=== PATIENT | female | born 1940 | race Caucasian/White ===

== ENCOUNTER → 2016-04-23 | Outpatient (CLI) | payer MEDICARE, BC ==
[~2016-04-23] MED LIST: ATIVAN0.5 MG PO; CALCIUM CITRAT1 EAC9 PO; LOPRESSOR 225 MG/TAB PO; NORVASC 10MG10 MG PO; RANITIDINE HCL300 M1 PO; SERTRALINE PO
== END ==
LOC: RAD 14:04
DX: R10.9 Unspecified abdominal pain (principal)

== ENCOUNTER → 2016-07-02 | Outpatient (CLI) | payer MEDICARE, BC ==
[2015-11-18 12:00] VITALS: BP 168/76
== END ==
LOC: LAB 16:15
DX: R00.2 Palpitations (principal); I10 Essential (primary) hypertension

== ENCOUNTER → 2016-07-06 | Outpatient (CLI) | payer MEDICARE, BC ==
[2016-07-06 10:15] VITALS: BP 126/61
== END ==
LOC: AMSURD 09:57
DX: R00.2 Palpitations (principal)

== ENCOUNTER → 2016-07-16 | Outpatient (CLI) | payer MEDICARE, BC ==
[2016-07-06 10:15] VITALS: BP 126/61
== END ==
LOC: CARDLAB 10:31
DX: I49.3 Ventricular premature depolarization (principal); I47.1 Supraventricular tachycardia
CPT/HCPCS: A9500

== ENCOUNTER → 2016-07-22 | Outpatient (CLI) | payer MEDICARE, BC ==
[2016-07-06 10:15] VITALS: BP 126/61
== END ==
LOC: VAS 16:45
DX: R00.2 Palpitations (principal); I49.3 Ventricular premature depolarization; I47.1 Supraventricular tachycardia; I25.10 Atherosclerotic heart disease of native coronary artery without angina pectoris; I34.0 Nonrheumatic mitral (valve) insufficiency

== ENCOUNTER → 2016-07-23 | Outpatient (CLI) | payer MEDICARE, BC ==
[2016-07-06 10:15] VITALS: BP 126/61
== END ==
LOC: CARDLAB 07-16 13:36 → CARDREHAB 12:33 → CARDLAB 12:33
DX: G47.33 Obstructive sleep apnea (adult) (pediatric) (principal); R09.02 Hypoxemia
CPT/HCPCS: G0399

== ENCOUNTER → 2016-12-16 | Outpatient (CLI) | payer MEDICARE, BC ==
[2016-07-06 10:15] VITALS: BP 126/61
== END ==
LOC: MAMMO 09:37
DX: Z12.31 Encounter for screening mammogram for malignant neoplasm of breast (principal)
CPT/HCPCS: G0202

== ENCOUNTER → 2016-12-21 | Outpatient (CLI) | payer MEDICARE, BC ==
[2016-07-06 10:15] VITALS: BP 126/61
== END ==
LOC: LAB 09:50
DX: Z12.11 Encounter for screening for malignant neoplasm of colon (principal); I10 Essential (primary) hypertension; E04.1 Nontoxic single thyroid nodule; K90.9 Intestinal malabsorption, unspecified; E78.2 Mixed hyperlipidemia

== ENCOUNTER → 2017-01-06 | Outpatient (CLI) | payer MEDICARE, BC ==
[2016-07-06 10:15] VITALS: BP 126/61
== END ==
LOC: LAB 11:16
DX: Z12.11 Encounter for screening for malignant neoplasm of colon (principal)

== ENCOUNTER → 2017-01-24 | Outpatient (CLI) | payer MEDICARE, BC ==
[2016-07-06 10:15] VITALS: BP 126/61
== END ==
LOC: RAD 10:48
DX: E04.1 Nontoxic single thyroid nodule (principal)

== ENCOUNTER → 2017-08-10 | Outpatient (CLI) | payer MEDICARE, BC ==
[2016-07-06 10:15] VITALS: BP 126/61
== END ==
LOC: MAMMO 11:23
DX: M81.0 Age-related osteoporosis without current pathological fracture (principal)

== ENCOUNTER → 2017-10-25 | Day surgery (SDC) | payer MEDICARE, BC ==
[2016-07-06 10:15] VITALS: BP 126/61
== END ==
LOC: MSO 09:00
DX: Z12.11 Encounter for screening for malignant neoplasm of colon (principal); Z86.010 Personal history of colon polyps; K63.5 Polyp of colon; I10 Essential (primary) hypertension; K21.9 Gastro-esophageal reflux disease without esophagitis; Z79.899 Other long term (current) drug therapy
CPT/HCPCS: 00811; J2704; J3010; J7120

== ENCOUNTER → 2017-11-08 | Outpatient (CLI) | payer MEDICARE, BC ==
[2016-07-06 10:15] VITALS: BP 126/61
== END ==
LOC: RAD 13:50 → MAMMO 14:00 → RAD 14:00
DX: E04.1 Nontoxic single thyroid nodule (principal)

== ENCOUNTER → 2017-12-20 | Outpatient (CLI) | payer MEDICARE, BC ==
[2016-07-06 10:15] VITALS: BP 126/61
== END ==
LOC: MAMMO 12:49
DX: Z12.31 Encounter for screening mammogram for malignant neoplasm of breast (principal)

== ENCOUNTER → 2018-01-31 | Outpatient (CLI) | payer MEDICARE, BC ==
[2016-07-06 10:15] VITALS: BP 126/61
[2018-01-31 09:29] LABS: EOS # 0.3 (0.04-0.40); EOS % 4.7 % (1.0-5.0); LYMPH# 2.2 (1.50-4.00); MEAN CELL VOLUME 91 fl (78-100); MEAN CORPUSCULAR HEMOGLOBIN 30 pg (27-31); MEAN CORPUSCULAR HGB CONC 33 g/dL (33-37); MEAN PLATELET VOLUME 11.3 fl (7.4-10.4); MONO # 0.6 (0.20-0.80); NEU # 2.4 (1.40-6.50); PLATELET COUNT 144 K/mm3 (130-400); RED BLOOD COUNT 4.93 M/mm3 (4.10-5.30); WHITE BLOOD COUNT 5.5 K/mm3 (4.8-10.8)
[2018-01-31 09:38] LABS: URINE APPEARANCE CLOUDY; URINE COLOR YELLOW
[2018-01-31 09:39] LABS: URINE BILIRUBIN NEGATIVE (NEGATIVE); URINE BLOOD NEGATIVE (NEGATIVE); URINE GLUCOSE NEGATIVE (NEGATIVE); URINE KETONE NEGATIVE (NEGATIVE); URINE LEUKOCYTE ESTERASE TRACE (NEGATIVE); URINE MUCUS PRESENT (NOT PRESENT); URINE NITRATE NEGATIVE (NEGATIVE); URINE PROTEIN(semi-quant) TRACE mg/dL (NEGATIVE); URINE UROBILINOGEN NORMAL (NORMAL)
[2018-01-31 09:49] LABS: POTASSIUM 4.9 mmol/L (3.6-5.0)
[2018-01-31 09:52] LABS: TOTAL PROTEIN 7.2 g/dL (6.3-8.2)
[2018-01-31 10:05] LABS: ALBUMIN 4.3 g/dL (3.5-5.0); TOTAL BILIRUBIN 0.6 mg/dL (0.2-1.3)
[2018-01-31 10:37] LABS: ERYTHROCYTE SEDIMENTATION RATE 1 mm/hr (0-30)
[2018-01-31 10:48] LABS: CALCIUM 9.8 mg/dL (8.4-10.2)
== END ==
LOC: LAB 09:00
PROVIDERS: Internal Medicine
DX: Z12.11 Encounter for screening for malignant neoplasm of colon (principal); R00.2 Palpitations; I10 Essential (primary) hypertension; E78.2 Mixed hyperlipidemia; K90.9 Intestinal malabsorption, unspecified; E04.1 Nontoxic single thyroid nodule

== ENCOUNTER → 2018-02-07 | Outpatient (CLI) | payer MEDICARE, BC ==
[2016-07-06 10:15] VITALS: BP 126/61
== END ==
LOC: LAB 12:09
DX: Z12.11 Encounter for screening for malignant neoplasm of colon (principal); I10 Essential (primary) hypertension; E04.1 Nontoxic single thyroid nodule; R00.2 Palpitations

== ENCOUNTER → 2018-02-07 | Outpatient (CLI) | payer MEDICARE, BC ==
[2016-07-06 10:15] VITALS: BP 126/61
== END ==
LOC: RAD 14:13
DX: M19.032 Primary osteoarthritis, left wrist (principal); M11.232 Other chondrocalcinosis, left wrist

== ENCOUNTER → 2018-05-03 | Outpatient (CLI) | payer MEDICARE, BC ==
[2016-07-06 10:15] VITALS: BP 126/61
== END ==
LOC: CARDREHAB 08:00
DX: G47.33 Obstructive sleep apnea (adult) (pediatric) (principal); R06.83 Snoring; G47.36 Sleep related hypoventilation in conditions classified elsewhere; G47.10 Hypersomnia, unspecified; Z79.899 Other long term (current) drug therapy; Z79.2 Long term (current) use of antibiotics
CPT/HCPCS: G0399

== ENCOUNTER → 2018-12-26 | Outpatient (CLI) | payer MEDICARE, BC ==
[2016-07-06 10:15] VITALS: BP 126/61
== END ==
LOC: MAMMO 12:55
DX: Z12.31 Encounter for screening mammogram for malignant neoplasm of breast (principal)

== ENCOUNTER → 2019-02-07 | Outpatient (CLI) | payer MEDICARE, BC ==
[2016-07-06 10:15] VITALS: BP 126/61
== END ==
LOC: AMSURD 08:06
DX: I49.3 Ventricular premature depolarization (principal)

== ENCOUNTER → 2019-03-09 | Outpatient (CLI) | payer MEDICARE, BC ==
[2016-07-06 10:15] VITALS: BP 126/61
[2019-03-09 10:33] LABS: EOS # 0.2 (0.04-0.40); HEMATOCRIT 42.5 % (37.0-47.0); HEMOGLOBIN 14.3 g/dL (12.5-16.0); LYMPH# 1.6 (1.50-4.00); MEAN CELL VOLUME 91 fl (78-100); MEAN CORPUSCULAR HEMOGLOBIN 31 pg (27-31); MEAN CORPUSCULAR HGB CONC 34 g/dL (33-37); MEAN PLATELET VOLUME 10.6 fl (7.4-10.4); MONO # 0.5 (0.20-0.80); NEU # 2.9 (1.40-6.50); PLATELET COUNT 186 K/mm3 (130-400); RED BLOOD COUNT 4.69 M/mm3 (4.10-5.30); RED CELL DISTRIBUTION WIDTH 13.1 % (11.5-14.5); WHITE BLOOD COUNT 5.3 K/mm3 (4.8-10.8)
[2019-03-09 10:40] LABS: POTASSIUM 4.2 mmol/L (3.5-5.1)
[2019-03-09 10:41] LABS: ALBUMIN 4.1 g/dL (3.4-4.8)
[2019-03-09 10:42] LABS: CALCIUM 9.6 mg/dL (8.3-10.5)
[2019-03-09 10:43] LABS: TOTAL PROTEIN 6.9 g/dL (6.2-8.1)
[2019-03-09 10:45] LABS: TOTAL BILIRUBIN 0.5 mg/dL (0.2-1.2)
[2019-03-09 10:50] LABS: MAGNESIUM 1.74 mg/dL (1.60-2.60)
[2019-03-09 11:00] LABS: URINE APPEARANCE CLOUDY; URINE BILIRUBIN NEGATIVE (NEGATIVE); URINE BLOOD NEGATIVE (NEGATIVE); URINE COLOR YELLOW; URINE GLUCOSE NEGATIVE (NEGATIVE); URINE KETONE NEGATIVE (NEGATIVE); URINE LEUKOCYTE ESTERASE NEGATIVE (NEGATIVE); URINE NITRATE NEGATIVE (NEGATIVE); URINE PROTEIN(semi-quant) NEGATIVE (NEGATIVE); URINE UROBILINOGEN NORMAL (NORMAL); URINE WBC 0-1 /hpf (0-3)
== END ==
LOC: LAB 10:16
PROVIDERS: Internal Medicine
DX: Z01.812 Encounter for preprocedural laboratory examination (principal); H25.013 Cortical age-related cataract, bilateral; K90.9 Intestinal malabsorption, unspecified; E78.2 Mixed hyperlipidemia; Z98.1 Arthrodesis status

== ENCOUNTER → 2019-10-09 | Outpatient (CLI) | payer MEDICARE, BC ==
[2016-07-06 10:15] VITALS: BP 126/61
[2019-10-09 14:32] LABS: BASO # 0.1 (0.02-0.10); EOS # 0.2 (0.04-0.40); EOS % 3.5 % (1.0-5.0); HEMOGLOBIN 13.7 g/dL (12.5-16.0); LYMPH# 2.2 (1.50-4.00); MEAN CELL VOLUME 91 fl (78-100); MEAN CORPUSCULAR HEMOGLOBIN 30 pg (27-31); MEAN CORPUSCULAR HGB CONC 33 g/dL (33-37); MEAN PLATELET VOLUME 10.8 fl (7.4-10.4); MONO # 0.7 (0.20-0.80); NEU # 2.9 (1.40-6.50); PLATELET COUNT 171 K/mm3 (130-400); RED BLOOD COUNT 4.52 M/mm3 (4.10-5.30); RED CELL DISTRIBUTION WIDTH 12.8 % (11.5-14.5)
[2019-10-09 14:44] LABS: ALBUMIN 4.1 g/dL (3.4-4.8)
[2019-10-09 14:45] LABS: CALCIUM 9.5 mg/dL (8.3-10.5)
[2019-10-09 14:48] LABS: TOTAL BILIRUBIN 0.5 mg/dL (0.2-1.2)
== END ==
LOC: LAB 14:10
PROVIDERS: Family Medicine
DX: I10 Essential (primary) hypertension (principal); E78.2 Mixed hyperlipidemia; E04.1 Nontoxic single thyroid nodule; K90.9 Intestinal malabsorption, unspecified

== ENCOUNTER → 2019-10-16 | Outpatient (CLI) | payer MEDICARE, BC ==
[2016-07-06 10:15] VITALS: BP 126/61
== END ==
LOC: RAD 08:30
DX: M71.22 Synovial cyst of popliteal space [Baker], left knee (principal); S83.92XA Sprain of unspecified site of left knee, initial encounter; M94.262 Chondromalacia, left knee; S83.232A Complex tear of medial meniscus, current injury, left knee, initial encounter

== ENCOUNTER → 2020-01-01 | Outpatient (CLI) | payer MEDICARE, BC ==
[2016-07-06 10:15] VITALS: BP 126/61
== END ==
LOC: MAMMO 14:15
DX: Z12.31 Encounter for screening mammogram for malignant neoplasm of breast (principal)

== ENCOUNTER → 2020-01-07 | Outpatient (CLI) | payer MEDICARE, BC ==
[2016-07-06 10:15] VITALS: BP 126/61
== END ==
LOC: LAB 09:13
DX: K90.9 Intestinal malabsorption, unspecified (principal)

== ENCOUNTER → 2020-02-26 | Outpatient (CLI) | payer MEDICARE, BC ==
[2016-07-06 10:15] VITALS: BP 126/61
[2020-02-26 16:56] LABS: HEMOGLOBIN 13.1 g/dL (12.5-16.0); RED BLOOD COUNT 4.33 M/mm3 (4.10-5.30); RED CELL DISTRIBUTION WIDTH 12.4 % (11.5-14.5); WHITE BLOOD COUNT 6.1 K/mm3 (4.8-10.8)
[2020-02-26 17:15] LABS: ALBUMIN 3.8 g/dL (3.4-4.8)
[2020-02-26 17:16] LABS: POTASSIUM 4.1 mmol/L (3.5-5.1)
[2020-02-26 17:17] LABS: CALCIUM 8.8 mg/dL (8.3-10.5)
[2020-02-26 17:18] LABS: TOTAL PROTEIN 6.1 g/dL (6.2-8.1)
[2020-02-26 17:20] LABS: TOTAL BILIRUBIN 0.3 mg/dL (0.2-1.2)
[2020-02-26 17:25] LABS: MAGNESIUM 1.93 mg/dL (1.60-2.60)
== END ==
LOC: LAB 16:10
PROVIDERS: Internal Medicine
DX: I10 Essential (primary) hypertension (principal); E04.1 Nontoxic single thyroid nodule

== ENCOUNTER → 2020-05-12 | Outpatient (CLI) | payer MEDICARE, BC ==
[2016-07-06 10:15] VITALS: BP 126/61
== END ==
LOC: RAD 11:37
DX: M47.812 Spondylosis without myelopathy or radiculopathy, cervical region (principal)

== ENCOUNTER → 2020-09-11 | Day surgery (SDC) | payer MEDICARE, BC | LOC: MSO 08:50 | DX: R13.10 Dysphagia, unspecified (principal); I10 Essential (primary) hypertension; M85.80 Other specified disorders of bone density and structure, unspecified site; M19.039 Primary osteoarthritis, unspecified wrist; Z91.040 Latex allergy status; Z79.899 Other long term (current) drug therapy; Z80.0 Family history of malignant neoplasm of digestive organs | CPT/HCPCS: 00731; C1769; J2704; J7120 ==

== ENCOUNTER → 2021-01-02 | Outpatient (CLI) | payer MEDICARE, BC ==
[2021-01-02 16:25] LABS: ALBUMIN 3.9 g/dL (3.4-4.8); BASO # 0.05 K/mm3 (0.02-0.10); EOS # 0.48 K/mm3 (0.04-0.40); EOS % 6.5 % (1.0-5.0); HEMATOCRIT 42.7 % (37.0-47.0); HEMOGLOBIN 14.1 g/dL (12.5-16.0); LYMPH# 2.28 K/mm3 (1.50-4.00); MEAN CELL VOLUME 94 fl (78-100); MEAN CORPUSCULAR HEMOGLOBIN 31 pg (27-31); MEAN CORPUSCULAR HGB CONC 33 g/dL (33-37); MEAN PLATELET VOLUME 10.9 fl (7.4-10.4); NEU # 3.82 K/mm3 (1.40-6.50); PLATELET COUNT 173 K/mm3 (130-400); POTASSIUM 4.6 mmol/L (3.5-5.1); RED BLOOD COUNT 4.54 M/mm3 (4.10-5.30); RED CELL DISTRIBUTION WIDTH 12.8 % (11.5-14.5); WHITE BLOOD COUNT 7.4 K/mm3 (4.8-10.8)
[2021-01-02 16:28] LABS: TOTAL PROTEIN 6.8 g/dL (6.2-8.1)
[2021-01-02 16:30] LABS: TOTAL BILIRUBIN 0.5 mg/dL (0.2-1.2)
[2021-01-02 16:35] LABS: MAGNESIUM 2.04 mg/dL (1.60-2.60)
== END ==
LOC: LAB 15:54
PROVIDERS: Internal Medicine
DX: I10 Essential (primary) hypertension (principal); K90.9 Intestinal malabsorption, unspecified; E78.2 Mixed hyperlipidemia; E04.1 Nontoxic single thyroid nodule

== ENCOUNTER → 2021-01-15 | Outpatient (CLI) | payer MEDICARE, BC | LOC: MAMMO 09:15 | DX: M81.0 Age-related osteoporosis without current pathological fracture (principal); Z12.31 Encounter for screening mammogram for malignant neoplasm of breast ==

== ENCOUNTER → 2021-01-15 | Outpatient (CLI) | payer MEDICARE, BC | LOC: RAD 09:38 | DX: Z13.820 Encounter for screening for osteoporosis (principal); M81.0 Age-related osteoporosis without current pathological fracture ==

== ENCOUNTER → 2021-02-10 | Outpatient (CLI) | payer MEDICARE, BC | LOC: RAD 12:23 | DX: M51.36 Other intervertebral disc degeneration, lumbar region (principal); M41.86 Other forms of scoliosis, lumbar region; Z98.1 Arthrodesis status ==

== ENCOUNTER → 2021-03-23 | Outpatient (CLI) | payer MEDICARE, BC | LOC: LAB 14:38 | DX: U07.1 COVID-19 (principal) ==

== ENCOUNTER → 2021-06-12 | Outpatient (CLI) | payer MEDICARE, BC | LOC: RAD 14:14 | DX: M16.0 Bilateral primary osteoarthritis of hip (principal); M47.816 Spondylosis without myelopathy or radiculopathy, lumbar region; M41.86 Other forms of scoliosis, lumbar region; Z98.1 Arthrodesis status; Z98.890 Other specified postprocedural states ==

== ENCOUNTER → 2021-06-22 | Outpatient (CLI) | payer MEDICARE, BC | LOC: AMSURD 16:14 | DX: R00.2 Palpitations (principal) ==

== ENCOUNTER → 2021-09-14 | Outpatient (CLI) | payer MEDICARE, BC | LOC: RAD 11:36 | DX: M50.321 Other cervical disc degeneration at C4-C5 level (principal) ==

== ENCOUNTER → 2021-10-19 | Outpatient (CLI) | payer MEDICARE, BC | LOC: LAB 17:06 | DX: Z20.822 Contact with and (suspected) exposure to COVID-19 (principal) ==

== ENCOUNTER → 2022-04-09 | Outpatient (CLI) | payer MEDICARE, BC | LOC: CARDREHAB 09:05 | DX: R06.00 Dyspnea, unspecified (principal) | CPT/HCPCS: A9500; J2785 ==

== ENCOUNTER 2022-11-09 09:29 | Outpatient (RCR) | payer MEDICARE, BC ==
[~2022-11-09 09:29] MED LIST changes: -SERTRALINE PO; +ZOLOFT 50MG50 MG PO
[2022-11-14] MEDS ORDERED: LOSARTAN POTAS100 MG PO (12:07)
[2022-11-14] MEDS ORDERED: CIPROFLOXACIN250 MG PO (12:07)
[2022-11-14] MEDS ORDERED: METRONIDAZOLE500 M1 PO (12:07)
[2022-11-14] MEDS ORDERED: HCTZ 25MG25 MG PO (12:08)
== END 2022-11-18 | disposition home or self-care (01) ==
LOC: PT
DX: M54.16 Radiculopathy, lumbar region (principal)

== ENCOUNTER → 2022-12-03 | Outpatient (CLI) | payer MEDICARE, BC ==
[~2022-12-03] MED LIST changes: +CIPROFLOXACIN250 MG PO; +HCTZ 25MG25 MG PO; +LOSARTAN POTAS100 MG PO; +METRONIDAZOLE500 M1 PO
[2022-12-03 11:46] LABS: BASO # 0.06 K/mm3 (0.02-0.10); EOS # 0.25 K/mm3 (0.04-0.40); EOS % 3.8 % (1.0-5.0); HEMATOCRIT 42.5 % (37.0-47.0); MEAN CELL VOLUME 94 fl (78-100); MEAN CORPUSCULAR HEMOGLOBIN 31 pg (27-31); MEAN CORPUSCULAR HGB CONC 33 g/dL (33-37); MEAN PLATELET VOLUME 10.1 fl (7.4-10.4); MONO # 0.64 K/mm3 (0.20-0.80); NEU # 3.52 K/mm3 (1.40-6.50); PLATELET COUNT 204 K/mm3 (130-400); RED BLOOD COUNT 4.53 M/mm3 (4.10-5.30); RED CELL DISTRIBUTION WIDTH 12.4 % (11.5-14.5); WHITE BLOOD COUNT 6.6 K/mm3 (4.8-10.8)
[2022-12-03 12:04] LABS: ALBUMIN 4.2 g/dL (3.4-4.8); POTASSIUM 4.3 mmol/L (3.5-5.1)
[2022-12-03 12:05] LABS: CALCIUM 9.6 mg/dL (8.3-10.5)
[2022-12-03 12:07] LABS: TOTAL PROTEIN 6.7 g/dL (6.2-8.1)
[2022-12-03 12:08] LABS: TOTAL BILIRUBIN 0.5 mg/dL (0.2-1.2)
[2022-12-03 12:13] LABS: MAGNESIUM 2.1 mg/dL (1.60-2.60)
== END ==
LOC: LAB 11:29
PROVIDERS: Internal Medicine
DX: I10 Essential (primary) hypertension (principal); R07.89 Other chest pain; M54.16 Radiculopathy, lumbar region; E04.1 Nontoxic single thyroid nodule; K57.32 Diverticulitis of large intestine without perforation or abscess without bleeding; M48.062 Spinal stenosis, lumbar region with neurogenic claudication; R77.8 Other specified abnormalities of plasma proteins

== ENCOUNTER → 2022-12-13 | Outpatient (CLI) | payer MEDICARE, BC | LOC: RAD 07:02 | DX: E04.1 Nontoxic single thyroid nodule (principal) ==

== ENCOUNTER → 2023-05-09 | Day surgery (SDC) | payer MEDICARE, BC ==
[~2023-05-09] MED LIST changes: +Lidocaine PF 2% (20 MG/ML) 5 ML VIAL ONE
== END | disposition home or self-care (01) ==
LOC: MSO 07:15
DX: R13.19 Other dysphagia (principal); K29.00 Acute gastritis without bleeding; K29.50 Unspecified chronic gastritis without bleeding; K29.80 Duodenitis without bleeding; G47.33 Obstructive sleep apnea (adult) (pediatric)
CPT/HCPCS: 00731; J2704; J7120

== ENCOUNTER → 2023-07-19 | Outpatient (CLI) | payer MEDICARE, BC ==
[~2023-07-19] MED LIST changes: -Lidocaine PF 2% (20 MG/ML) 5 ML VIAL ONE
== END ==
LOC: MAMMO 14:27
DX: Z12.31 Encounter for screening mammogram for malignant neoplasm of breast (principal); M81.0 Age-related osteoporosis without current pathological fracture

== ENCOUNTER → 2023-07-19 | Outpatient (CLI) | payer MEDICARE, BC | LOC: RAD 14:29 → MAMMO 15:00 → RAD 15:00 | DX: Z13.820 Encounter for screening for osteoporosis (principal); M81.0 Age-related osteoporosis without current pathological fracture ==

== ENCOUNTER → 2023-09-27 | Outpatient (CLI) | payer MEDICARE, BC | LOC: RAD 09:30 | DX: R60.0 Localized edema (principal) ==

== ENCOUNTER → 2023-11-01 | Outpatient (CLI) | payer MEDICARE, BC ==
[2023-11-01 13:35] LABS: BASO # 0.05 K/mm3 (0.02-0.10); EOS % 3.4 % (1.0-5.0); HEMATOCRIT 41.1 % (37.0-47.0); HEMOGLOBIN 14.2 g/dL (12.5-16.0); LYMPH# 1.97 K/mm3 (1.50-4.00); MEAN CELL VOLUME 89 fl (78-100); MEAN CORPUSCULAR HEMOGLOBIN 31 pg (27-31); MEAN CORPUSCULAR HGB CONC 35 g/dL (33-37); MEAN PLATELET VOLUME 10.5 fl (7.4-10.4); MONO # 0.68 K/mm3 (0.20-0.80); NEU # 2.95 K/mm3 (1.40-6.50); PLATELET COUNT 179 K/mm3 (130-400); RED CELL DISTRIBUTION WIDTH 12.2 % (11.5-14.5); WHITE BLOOD COUNT 5.9 K/mm3 (4.8-10.8)
[2023-11-01 13:43] LABS: ALBUMIN 4.4 g/dL (3.4-4.8); SODIUM 135 mmol/L (136-145)
[2023-11-01 13:44] LABS: CALCIUM 9.9 mg/dL (8.3-10.5)
[2023-11-01 13:45] LABS: GLUCOSE 96 mg/dL (65-105); TOTAL PROTEIN 6.8 g/dL (6.2-8.1)
[2023-11-01 13:46] LABS: CARBON DIOXIDE 25 mmol/L (23-31)
[2023-11-01 13:47] LABS: TOTAL BILIRUBIN 0.4 mg/dL (0.2-1.2)
[2023-11-01 13:51] LABS: AST-SGOT 16 U/L (5-34)
[2023-11-01 13:52] LABS: ALT/SGPT 14 U/L (0-55)
[2023-11-01 13:58] LABS: TROPONIN-I < 0.030 ng/mL (0.00-0.033)
== END ==
LOC: LAB 13:19
PROVIDERS: Nurse Practitioner Family
DX: R07.9 Chest pain, unspecified (principal)

== ENCOUNTER → 2023-12-23 | Outpatient (CLI) | payer MEDICARE, BC ==
[~2023-12-23] VITALS: Ht 160 cm; Wt 62.6 kg
== END ==
LOC: CARDREHAB 12:53
DX: G47.33 Obstructive sleep apnea (adult) (pediatric) (principal)
CPT/HCPCS: G0399